=== PATIENT | female | born 1980 | race Caucasian/White ===

== ENCOUNTER 2021-07-23 11:32 | Emergency (ER) | payer OTHER, SELFPAY ==
[2021-07-23 11:50] VITALS: BP 145/97; PULSE 98; RESP 18; TEMP 36.8; O2SAT 100
--- NOTE | 2021-07-23 12:24 | ED.FEMALEGU ---
HPI - Female Genitourinary General Chief complaint: Urogenital-Female Stated complaint: UTI Time Seen by Provider: 07/23/21 12:24 Source: patient Mode of arrival: ambulatory Limitations: no limitations History of Present Illness HPI Narrative: 40-year-old female presents with urinary frequency, dysuria, low back pain, worse to right side and suprapubic pain for 4 days. Symptoms getting progressively worse. Denies nausea vomiting diarrhea. Denies fever chills. Reports symptoms similar to previous UTI. No concern for . All systems reviewed and negative except as noted above. Related Data Home Medications Medication Instructions Recorded Confirmed amitriptyline 10 mg tablet tablet 07/23/21 bupropion HCl 300 mg 24 hr tablet, tablet PO 07/23/21 extended release lisdexamfetamine 40 mg capsule cap 07/23/21 (Vyvanse) Allergies Allergy/AdvReac Type Severity Reaction Status Date / Time doxycycline Allergy Gastrointestinal Verified 07/23/21 11:58 Upset Review of Systems Review of Systems: CONSTITUTIONAL: Denies fever, chills, or sweats. EYES: Denies visual changes, redness, or discharge. ENT: Denies rhinorrhea, congestion, sore throat, or otalgia. CARDIOVASCULAR: Denies chest pain, palpitations, or edema. RESPIRATORY: Denies cough or dyspnea. GASTROINTESTINAL: Denies abdominal pain, nausea, vomiting, or diarrhea. GENITOURINARY: Reports dysuria, urgency, frequency. Denies hematuria. SKIN: Denies rash or itching. MUSCULOSKELETAL: Denies back pain, joint pain, or myalgia. NEUROLOGIC: Denies headache, numbness, or weakness. PSYCHIATRIC: Denies anxiety or depression. All other systems reviewed are negative, except as documented in HPI. PMFSH Social History Social History Second hand tobacco smoke exposure: No Alcohol intake: current Comments At time of signature, agree with nursing past medical, surgical, social and family history. There is no relevant family history pertinent to the presenting complaint. Exam Narrative: GENERAL: This is a well-nourished, well-developed patient, in no apparent distress. HEAD: normocephalic, atraumatic. EYES: PERRL. Sclera clear/white. Vision is grossly intact. EARS: External ears normal NOSE: External nose normal NECK: Neck supple, non-tender without lymphadenopathy, masses or thyromegaly. CARDIOVASCULAR: Regular rate and rhythm without murmurs, gallops, or rubs. RESPIRATORY: Clear to auscultation. Breath sounds equal bilaterally. No wheezes, rales, or rhonchi. GASTROINTESTINAL: Abdomen soft, non-tender, nondistended. Bowel sounds are active. No hepato-splenomegaly, or palpable masses. No guarding. SKIN: warm, Dry, intact with no suspicious lesions or rash, good texture and turgor. NEURO: awake, alert, and oriented to person, place and time. There were no obvious focal neurologic abnormalities. EXTREMITIES: Normal range of motion to all extremities. BACK: No CVA tenderness. Course Course Level of Care: Express Care Visit Vital Signs Vital signs: Vital Signs Temperature 36.8 C 07/23/21 11:50 Pulse Rate 98 07/23/21 11:50 Respiratory Rate 18 07/23/21 11:50 Blood Pressure 145/97 H 07/23/21 11:50 Pulse Oximetry 100 07/23/21 11:50 Oxygen Delivery Room Air 07/23/21 11:50 Temperature 36.8 C 07/23/21 11:50 Pulse Rate 98 07/23/21 11:50 Respiratory Rate 18 07/23/21 11:50 Blood Pressure 145/97 H 07/23/21 11:50 Pulse Oximetry 100 07/23/21 11:50 Oxygen Delivery Room Air 07/23/21 11:50 Reviewed MDM - Female Genitourinary MDM Narrative Medical decision making narrative: Patient is aware of diagnosis, understands and agrees to treatment plan. Anticipatory guidance given. Patient agrees to follow-up as directed and is aware of reasons to seek care at the emergency department. Portions of this record may have been created with voice recognition software Lab Data Labs: Urine Glucose Negati
== END 2021-07-23 12:41 | disposition home or self-care (01) ==
PROVIDERS: Emergency Provider Nurse Practitioner Family; PCP Family Medicine
DX: N39.0 Urinary tract infection, site not specified (principal); F90.9 Attention-deficit hyperactivity disorder, unspecified type; F32.A Depression, unspecified
CPT/HCPCS: 81003; 87086; 99213; G0463